=== PATIENT | female | born 1955 | race Caucasian/White ===

== ENCOUNTER 2017-03-06 00:42 | Emergency (ER) | payer BC ==
[2017-03-06 01:49] VITALS: BP 122/78
--- NOTE | 2017-03-06 03:03 | EDM.PDOC ---
ED HPI Skin/Rash - General Chief Complaint: Laceration Stated Complaint: FELL/CUT HEAD Time Seen by Provider: 03/06/17 02:57 Source: Reports: Patient History Limitations: Reports: No limitations - History of Present Illness INITIAL COMMENTS - FREE TEXT/NARRATIVE: This patient was at home playing a board game with friends and had been drinking just a little bit. At one point she fell and bumped her head against some furniture. there was no loss of consciousness and she's been acting normally since then. This happened just prior to arrival. ++ - Related Data Allergies Allergy/AdvReac Type Severity Reaction Status Date / Time No Known Allergies Allergy Verified 03/06/17 01:50 Home Meds: Ambulatory Orders Medication Instructions Recorded Confirmed Cholecalciferol (Vitamin D3) 1,000 units PO DAILY 03/06/17 03/06/17 [Vitamin D3] Levothyroxine Sodium [Synthroid] 75 mcg PO ACBREAKFAST 03/06/17 03/06/17 Multivitamin [Multivitamins] 1 each PO DAILY 03/06/17 03/06/17 Ubidecarenone [Co Q-10] 100 mg PO DAILY 03/06/17 03/06/17 Past Medical History [employer] History: Reports: Endocrine/Metabolic History: Reports: Hyperthyroidism - Infectious Disease History Infectious Disease History: Reports: Chicken pox Social & Family History - Tobacco Use Smoking Status *Q: Current Every Day Smoker Years of Tobacco use: 45 Packs/Tins Daily: 0.5 Second Hand Smoke Exposure: No - Caffeine Use Caffeine Use: Reports: Coffee - Recreational Drug Use Recreational Drug Use: No ED ROS GENERAL - Review of Systems Review Of Systems: See Below Constitutional: Reports: no symptoms HEENT: Reports: No symptoms, Other (She denies any neck pain) Respiratory: Reports: No Symptoms Cardiovascular: Reports: No symptoms ED EXAM, SKIN/RASH Exam: See Below Exam Limited By: No limitations General Appearance: alert, WD/WN, no apparent distress Eye Exam: bilateral eye: EOMI, PERRL Head: other (There is a vertical laceration approximately 4 cm long it is on the for head at the hairline extends slightly him up to the scalp edges are well approximated.) Neck: normal inspection, supple, non-tender, full range of motion Course - Vital Signs Last Recorded V/S: Last Vital Signs Temp 36.1 C 03/06/17 01:47 Pulse 77 03/06/17 01:47 Resp 16 03/06/17 01:47 BP 122/78 03/06/17 01:47 Pulse Ox 98 03/06/17 01:47 - Re-Assessments/Exams Free Text/Narrative Re-Assessment/Exam: 03/06/17 03:00 The wound was cleaned and flushed with normal saline. Wound margins were then treated with some Benzoyne and it is reapproximated with Steri-Strips #3. Steri -Strips were placed on the inferior two thirds of the laceration. The upper portion tended to bleed. The entire area was then coated heavily with Dermabond getting a good cosmetic closure. Departure - Departure Time of Disposition: 03:01 Disposition: Home, Self-Care 01 Condition: fair Clinical Impression: Facial laceration Forms: ED Department Discharge Additional Instructions: Do not put anything on the adhesive since that will dissolve it. You can wash her hair gently to avoid scrubbing over the wound such that might dislodge the adhesive or the tape strips. Leave the tape strips on for about a week then you may begin gently removing them.
== END 2017-03-06 03:26 | disposition home or self-care (01) ==
LOC: JP.ED 00:42
DX: S01.81XA Laceration without foreign body of other part of head, initial encounter (principal); F17.210 Nicotine dependence, cigarettes, uncomplicated; Z79.899 Other long term (current) drug therapy; W18.09XA Striking against other object with subsequent fall, initial encounter
CPT/HCPCS: 12013; 99283

== ENCOUNTER 2017-11-01 06:56 | Day surgery (SDC) | payer BC ==
[2017-11-01] MEDS ORDERED: Propofol 200 MG/20 ML SDV ONE ×2 (07:09→08:46)
[2017-11-01] MEDS ORDERED: Midazolam 1 MG/ML 2 ML SDV ONE (07:09)
[2017-11-01] MEDS ORDERED: fentaNYL 100 MCG/2 ML SDV ONE (07:09)
[2017-11-01] MEDS ORDERED: Lactated Ringers 1,000 ML IV SCH (07:15)
[2017-11-01 09:50] VITALS: BP 117/70
--- NOTE | 2017-11-01 12:04 | OR ---
DATE OF PROCEDURE: 11/01/2017 PREOPERATIVE DIAGNOSIS: Strong family history of colon cancer--mother had colon cancer. Personal history of colon polyps. POSTOPERATIVE DIAGNOSES: Strong family history of colon cancer--mother had colon cancer. Personal history of colon polyps. Diverticulosis. Small polyp, 15 cm from the anal verge. Two small polyps, distal rectum. PROCEDURES PERFORMED: Colonoscopy to the cecum with biopsy resection of small polyp at 15 cm from the anal verge, biopsy resection of two small distal rectal polyps, sent to the laboratory as one specimen. SURGEON: Zacarias Patel MD. ANESTHESIA: IV anesthesia with monitored anesthesia care. INDICATION: This 62-year-old white female is referred for a colonoscopy. Her mother had colon cancer, and she has a personal history of colon polyps. Her last colonoscopic exam was done in 2010. She intends to have these done every five years. I counseled her for a colonoscopy with possible biopsy and/or polypectomy, including risks and alternatives, and she gave her informed consent to proceed. DESCRIPTION OF PROCEDURE: The patient was placed in the left lateral decubitus position. IV anesthesia was administered by the Anesthesia Service. Time-out was held. A rectal exam was performed, which was unremarkable. The flexible video Olympus colonoscope was introduced through her anus, up her rectum, and out her colon all the way to the cecum. Once the cecum was reached, the scope was slowly withdrawn, examining the mucosa throughout. We saw very few small left-sided diverticula. There was no bleeding or inflammation associated with them. At 15 cm from the anal verge, we encountered a small polyp, which was removed with the biopsy forceps. The scope was brought back further, where it was retroflexed in the rectum. The distal rectum was found to have two small polyps, which were removed with the biopsy forceps and sent to the laboratory as one specimen. Additionally, we encountered some hemorrhoidal tissue. The scope was straightened and removed. She tolerated the procedure well. Zacarias Patel MD /[id number] MTDD
== END 2017-11-01 10:05 | disposition home or self-care (01) ==
LOC: JP.SDS 06:56
PROVIDERS: ATTEND Surgery
DX: Z12.11 Encounter for screening for malignant neoplasm of colon (principal); K63.5 Polyp of colon; K62.1 Rectal polyp; K57.30 Diverticulosis of large intestine without perforation or abscess without bleeding; F17.210 Nicotine dependence, cigarettes, uncomplicated; Z80.0 Family history of malignant neoplasm of digestive organs; Z86.010 Personal history of colon polyps; Z79.82 Long term (current) use of aspirin; Z79.899 Other long term (current) drug therapy
CPT/HCPCS: 45380; 88305; J2250; J2704; J3010; J7120

== ENCOUNTER 2019-11-29 15:27 | Inpatient (IN) | payer MEDICARE ==
[2019-11-29] MEDS ORDERED: Albuterol 0.083% 2.5 MG/3 ML Neb Soln NEB ONE ×2 (16:13→17:40)
--- NOTE | 2019-11-29 16:16 | EDM.PDOC ---
ED HPI GENERAL MEDICAL PROBLEM - General Chief Complaint: Respiratory Problem Stated Complaint: SOB Time Seen by Provider: 11/29/19 16:14 Source of Information: Reports: Patient History Limitations: Reports: No Limitations - History of Present Illness INITIAL COMMENTS - FREE TEXT/NARRATIVE: pt has been sob for the past 2 days. Today she has been very short. On arrival her o2 sats were in the 84 range. Onset: Other ( last 2 days. ) Duration: Hour(s): Location: Reports: Chest Associated Symptoms: Reports: Cough, Diaphoresis, Shortness of Breath, Weakness - Related Data Allergies Allergy/AdvReac Type Severity Reaction Status Date / Time No Known Allergies Allergy Verified 11/29/19 15:55 Home Meds: Home Meds Cholecalciferol (Vitamin D3) [Vitamin D3] 1,000 units PO DAILY 03/06/17 [History ] Levothyroxine Sodium [Synthroid] 75 mcg PO ACBREAKFAST 03/06/17 [History] Ascorbic Acid [Vitamin C] 1,000 mg PO DAILY 10/28/17 [History] Aspirin [Halfprin] 81 mg PO DAILY 10/28/17 [History] Vitamin B Complex [B Complex] 1 each PO DAILY 10/28/17 [History] Past Medical History HEENT History: Reports: Impaired Vision Cardiovascular History: Reports: High Cholesterol Gastrointestinal History: Reports: Colon Polyp, Hemorrhoids Genitourinary History: Reports: [employer]D [employer] REPA[employer]ER History: Reports: Musculoskeletal History: Reports: None Endocrine/Metabolic History: Reports: Hyperthyroidism Dermatologic History: Reports: Eczema - Infectious Disease History Infectious Disease History: Reports: Chicken Pox, Measles - Past Surgical History Head Surgeries/Procedures: Reports: None HEENT Surgical History: Reports: Other (See Below) Other HEENT Surgeries/Procedures: ear lobe surgery Cardiovascular Surgical History: Reports: None GI Surgical History: Reports: Colonoscopy, Lysis of Adhesions Female Surgical History: Reports: Section, Oophorectomy Endocrine Surgical History: Reports: None Musculoskeletal Surgical History: Reports: Other (See Below) Other Musculoskeletal Surgeries/Procedures:: trigger thumb release Dermatological Surgical History: Reports: Skin Biopsy Social & Family History - Tobacco Use Smoking Status *Q: Current Every Day Smoker Years of Tobacco use: 40 Packs/Tins Daily: 0.2 Used Tobacco, but Quit: No Second Hand Smoke Exposure: No - Caffeine Use Caffeine Use: Reports: Coffee - Alcohol Use Days Per Week of Alcohol Use: 3 Number of Drinks Per Day: 1 Total Drinks Per Week: 3 - Recreational Drug Use Recreational Drug Use: No ED ROS GENERAL - Review of Systems Review Of Systems: See Below Constitutional: Reports: Chills, Malaise, Weakness HEENT: Reports: No Symptoms Respiratory: Reports: Shortness of Breath, Cough, Sputum Cardiovascular: Reports: No Symptoms Endocrine: Reports: No Symptoms GI/Abdominal: Reports: No Symptoms : Reports: No Symptoms Musculoskeletal: Reports: No Symptoms Skin: Reports: No Symptoms ED EXAM, GENERAL - Physical Exam Exam: See Below Free Text/Narrative:: pt arrived with marked sob and wheezing. She has been coughing. She has not felt well for 2 days but she had a very rough nite and had difficulty breathing all nite. Exam Limited By: Respiratory Distress General Appearance: Alert, Anxious, Moderate Distress, Other (o2 sats were at 84 , ) Ears: Normal TMs Nose: Normal Inspection Throat/Mouth: Normal Inspection Head: Atraumatic Neck: Normal Inspection Respiratory/Chest: Decreased Breath Sounds, Wheezing Cardiovascular: Other ( rhythm is irregular at a rate of 120, ) GI/Abdominal: Soft, Non-Tender (Female) Exam: Deferred Rectal (Female) Exam: Deferred Back Exam: Normal Inspection Extremities: Normal Inspection Neurological: Alert, Oriented, Normal Cognition Psychiatric: Normal Affect Course - Vital Signs Last Recorded V/S: Last Vital Signs Temp 36.8 C 11/29/19 15:57 Pulse 122 H 11/29/19 17:44 Resp 25 H 11/29/19 17:44 BP 134/60 11/29/19 17:44 Pulse Ox 92 L 11/29/19 17:44 - Orders/Labs/Meds Orders: Active Orders 24 hr Category Date Time Status EKG Documentation Completion [RC] ASDIRECTED Care 11/29/19 17:01 Active RT Aerosol Therapy [RC] ASDIRECTED Care 11/29/19 16:14 Active RT Aerosol Therapy [RC] ASDIRECTED Care 11/29/19 17:40 Active Sodium Chloride 0.9% [Normal Saline] 1,000 ml Med 11/29/19 18:00 Ordered IV ASDIRECTED Sodium Chloride 0.9% [Saline Flush] Med 11/29/19 17:51 Ordered 10 ml FLUSH ASDIRECTED PRN Saline Lock Insert [OM.PC] Routine Oth 11/29/19 17:51 Ordered EKG 12 Lead [EK] Routine Ther 11/29/19 17:00 Ordered Medication Orders Sodium Chloride (Normal Saline) 1,000 mls @ 500 mls/hr IV ASDIRECTED AUGUST Sodium Chloride (Saline Flush) 10 ml FLUSH ASDIRECTED PRN PRN Reason: Keep Vein Open Labs: Laboratory Tests 11/29/19 11/29/19 11/29/19 Range/Units 16:25 16:25 16:28 WBC 10.6 (4.5-11.0) K/uL RBC 4.76 (3.30-5.50) M/uL Hgb 14.6 (12.0-15.0) g/dL Hct 43.7 (36.0-48.0) % MCV 92 (80-98) fL MCH 31 (27-31) pg MCHC 33 (32-36) % Plt Count 248 (150-400) K/uL Neut % (Auto) 69 H (36-66) % Lymph % (Auto) 16 L (24-44) % [place] % (Auto) 14 H (2-6) % Eos % (Auto) 1 L (2-4) % Baso % (Auto) 0 (0-1) % D-Dimer, Quantitative (0.0-400.0) ng/mL Puncture Site Left radial ABG pH 7.417 (7.350-7.450) ABG pCO2 41.0 (35.0-42.0) mmHg ABG pO2 68.5 L (75.0-100.0) mmHg ABG HCO3 25.9 (22.0-26.0) mmol/L ABG Total CO2 22.6 (21.0-25.0) mmol/L ABG O2 Saturation 93.5 L (95.0-98.0) % ABG O2 Content 18.8 (15.0-23.0) %vol ABG Base Excess 1.7 mm/L ABG Hemoglobin 14.6 (12.0-16.0) g/dL ABG Oxyhemoglobin 91.8 % ABG Carboxyhemoglobin 1.2 (0.0-1.6) % ABG Methemoglobin 0.6 % [place]ilton Test Passed O2 Delivery Device Nasal cannula Oxygen Flow Rate 2 L Sodium 135 L (140-148) mmol/L Potassium 4.0 (3.6-5.2) mmol/L Chloride 98 L (100-108) mmol/L Carbon Dioxide 28 (21-32) mmol/L Anion Gap 13.0 (5.0-14.0) mmol/L BUN 7 (7-18) mg/dL Creatinine 0.6 (0.6-1.0) mg/dL Est Cr Clr Drug Dosing 66.25 mL/min Estimated GFR (MDRD) > 60 (>60) Glucose 111 H (74-106) mg/dL Calcium 8.9 (8.5-10.1) mg/dL Total Bilirubin 0.4 (0.2-1.0) mg/dL AST 26 (15-37) U/L ALT 36 (12-78) U/L Alkaline Phosphatase 96 (46-116) U/L Troponin I (0.000-0.056) ng/mL NT-Pro-B Natriuret Pep (5-125) pg/mL Total Protein 7.7 (6.4-8.2) g/dL Albumin 3.7 (3.4-5.0) g/dL Globulin 4.0 H (2.3-3.5) g/dL Albumin/Globulin Ratio 0.9 L (1.2-2.2) 11/29/19 11/29/19 11/29/19 Range/Units 16:43 17:00 17:00 WBC (4.5-11.0) K/uL RBC (3.30-5.50) M/uL Hgb (12.0-15.0) g/dL Hct (36.0-48.0) % MCV (80-98) fL MCH (27-31) pg MCHC (32-36) % Plt Count (150-400) K/uL Neut % (Auto) (36-66) % Lymph % (Auto) (24-44) % [place] % (Auto) (2-6) % Eos % (Auto) (2-4) % Baso % (Auto) (0-1) % D-Dimer, Quantitative < 100 (0.0-400.0) ng/mL Puncture Site ABG pH (7.350-7.450) ABG pCO2 (35.0-42.0) mmHg ABG pO2 (75.0-100.0) mmHg ABG HCO3 (22.0-26.0) mmol/L ABG Total CO2 (21.0-25.0) mmol/L ABG O2 Saturation (95.0-98.0) % ABG O2 Content (15.0-23.0) %vol ABG Base Excess mm/L ABG Hemoglobin (12.0-16.0) g/dL ABG Oxyhemoglobin % ABG Carboxyhemoglobin (0.0-1.6) % ABG Methemoglobin % Nilton Test O2 Delivery Device Oxygen Flow Rate L Sodium (140-148) mmol/L Potassium (3.6-5.2) mmol/L Chloride (100-108) mmol/L Carbon Dioxide (21-32) mmol/L Anion Gap (5.0-14.0) mmol/L BUN (7-18) mg/dL Creatinine (0.6-1.0) mg/dL Est Cr Clr Drug Dosing mL/min Estimated GFR (MDRD) (>60) Glucose (74-106) mg/dL Calcium (8.5-10.1) mg/dL Total Bilirubin (0.2-1.0) mg/dL AST (15-37) U/L ALT (12-78) U/L Alkaline Phosphatase (46-116) U/L Troponin I < 0.017 (0.000-0.056) ng/mL NT-Pro-B Natriuret Pep 77 (5-125) pg/mL Total Protein (6.4-8.2) g/dL Albumin (3.4-5.0) g/dL Globulin (2.3-3.5) g/dL Albumin/Globulin Ratio (1.2-2.2) Meds: Medications Generic Name Dose Route Start Last Admin Trade Name Freq PRN Reason Stop Dose Admin Sodium Chloride 1,000 mls @ 500 mls/hr 11/29/19 18:00 Normal Saline IV ASDIRECTED AUGUST Sodium Chloride 10 ml 11/29/19 17:51 Saline Flush FLUSH ASDIRECTED PRN Keep Vein Open Discontinued Medications Generic Name Dose Route Start Last Admin Trade Name Freq PRN Reason Stop Dose Admin Albuterol 2.5 mg 11/29/19 16:13 11/29/19 16:23 Proventil Neb Soln NEB 11/29/19 16:14 2.5 mg ONETIME ONE Administration Albuterol 2.5 mg 11/29/19 17:40 11/29/19 17:51 Proventil Neb Soln NEB 11/29/19 17:41 2.5 mg ONETIME ONE Administration Methylprednisolone Sodium Succinate 125 mg 11/29/19 17:47 Solu-Medrol IVPUSH 11/29/19 17:48 ONETIME ONE - Re-Assessments/Exams Free Text/Narrative Re-Assessment/Exam: 11/29/19 17:55 pt was given a albuterol neb and she improved markedly. She did have neg influ. She had a wbc that was normal. Her ddiner was 100. Her bnp was normal. Her trop was neg. She continues to be sating on the low side at 89-100. She continues to have a HR of 120. Departure - Departure Time of Disposition: 17:01 Disposition: Admitted As Inpatient 64 Condition: Good, Fair Clinical Impression: Bronchospasm, Bronchitis, Sinus tachycardia - Discharge Information Referrals: Elizabeth Santana PA-C [Primary Care Provider] - Forms: ED Department Discharge Care Plan Goals: admit to Dr Thomas bronchospasm, tachy, and bronchitis Sepsis Event Note - Evaluation Sepsis Screening Result: No Definite Risk - Focused Exam Vital Signs: Vital Signs Temp Pulse Resp BP Pulse Ox 11/29/19 17:44 122 H 25 H 134/60 92 L 11/29/19 17:08 120 H 25 H 137/50 L 88 L 11/29/19 16:17 119 H 26 H 134/49 L 93 L 11/29/19 15:57 36.8 C 109 H 22 H 154/49 H 84 L 11/29/19 15:51 36.8 C 109 H 22 H 154/49 H 84 L Date Exam was Performed: 11/29/19 Time Exam was Performed: 17:52 - My Orders Last 24 Hours: My Active Orders 11/29/19 16:14 RT Aerosol Therapy [RC] ASDIRECTED 11/29/19 17:00 EKG 12 Lead [EK] Routine 11/29/19 17:01 EKG Documentation Completion [RC] ASDIRECTED 11/29/19 17:40 RT Aerosol Therapy [RC] ASDIRECTED 11/29/19 17:51 Sodium Chloride 0.9% [Saline Flush] 10 ml FLUSH ASDIRECTED PRN Saline Lock Insert [OM.PC] Routine 11/29/19 18:00 Sodium Chloride 0.9% [Normal Saline] 1,000 ml IV ASDIRECTED - Assessment/Plan Last 24 Hours: My Active Orders 11/29/19 16:14 RT Aerosol Therapy [RC] ASDIRECTED 11/29/19 17:00 EKG 12 Lead [EK] Routine 11/29/19 17:01 EKG Documentation Completion [RC] ASDIRECTED 11/29/19 17:40 RT Aerosol Therapy [RC] ASDIRECTED 11/29/19 17:51 Sodium Chloride 0.9% [Saline Flush] 10 ml FLUSH ASDIRECTED PRN Saline Lock Insert [OM.PC] Routine 11/29/19 18:00 Sodium Chloride 0.9% [Normal Saline] 1,000 ml IV ASDIRECTED
--- NOTE | 2019-11-29 16:57 | CRLCR ---
INDICATION: shortness of breath TECHNIQUE: Chest radiograph 1 view COMPARISON: None FINDINGS: Mediastinum: The mediastinum is normal in appearance. The heart silhouette is normal in size and morphology. Lung: Both lungs are unremarkable in appearance. No sign of pleural effusion seen. No pneumothorax is identified. Bone and Soft tissue: Unremarkable for age. IMPRESSION: 1. No acute cardiopulmonary disease is seen. Dictated by: Cedrick Varela MD @ 11/29/2019 16:54:56 (Electronically Signed)
[2019-11-29] MEDS ORDERED: methylPREDNISolone Sodium Succinate 125 MG/2 ML SDV IVPUSH ONE (17:47)
[2019-11-29] MEDS ORDERED: Sodium Chloride 0.9% 10 ML Syringe FLUSH PRN (17:51)
[2019-11-29] MEDS ORDERED: Sodium Chloride 0.9% 1,000 ML IV SCH (18:00)
--- NOTE | 2019-11-29 18:23 | PCM.HP.2 ---
H&P History of Present Illness - General Date of Service: 11/29/19 Admit Problem/Dx: Admission Diagnosis/Problem Admission Diagnosis/Problem Acute bronchitis with bronchospasm Source of Information: Patient, Family, Provider History Limitations: Reports: No Limitations - History of Present Illness Initial Comments - Free Text/Narative: CC: I couldn't catch my breath HPI: Raisa presents to the emergency room today with several days of progressive cough and shortness of breath. Cough has become so persistent and intense that she has not slept hardly at all for the past 2 nights. For the most part her cough is dry but occasionally she is able to produce small quantities of clear to yellow sputum. She is short of breath with minimal activity at this point. She does not have any chest pain. She does not think she has had any fevers. No swelling in her ankles. She notes nasal congestion and rhinorrhea but no complaints of sore throat. She does report a sick contact and notes that her grandson had similar symptoms when she visited him just shy of a week ago. He has been getting better with supportive cares. No change in bowel or bladder habits. No nausea or abdominal pain. She has been taking Tylenol and [id number] cold remedies but despite this things have been getting worse. Work-up in the emergency room has been reassuring as far as laboratory studies and imaging. She is hypoxic and requires 2 L of supplemental oxygen. She did show some improvement with nebulizer therapies but continues to be hypoxic and will be admitted for management of bronchitis with bronchospasm. - Related Data Allergies/Adverse Reactions: Allergies Allergy/AdvReac Type Severity Reaction Status Date / Time No Known Allergies Allergy Verified 11/29/19 15:55 Home Medications: Home Meds Cholecalciferol (Vitamin D3) [Vitamin D3] 1,000 units PO DAILY 03/06/17 [History ] Levothyroxine Sodium [Synthroid] 75 mcg PO ACBREAKFAST 03/06/17 [History] Ascorbic Acid [Vitamin C] 1,000 mg PO DAILY 10/28/17 [History] Aspirin [Halfprin] 81 mg PO DAILY 10/28/17 [History] Vitamin B Complex [B Complex] 1 each PO DAILY 10/28/17 [History] Past Medical History HEENT History: Reports: Impaired Vision Cardiovascular History: Reports: High Cholesterol Gastrointestinal History: Reports: Colon Polyp, Hemorrhoids Genitourinary History: Reports: STD [employer]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: Musculoskeletal History: Reports: None Endocrine/Metabolic History: Reports: Hyperthyroidism Dermatologic History: Reports: Eczema - Infectious Disease History Infectious Disease History: Reports: Chicken Pox, Measles - Past Surgical History Head Surgeries/Procedures: Reports: None HEENT Surgical History: Reports: Other (See Below) Other HEENT Surgeries/Procedures: ear lobe surgery Cardiovascular Surgical History: Reports: None GI Surgical History: Reports: Colonoscopy, Lysis of Adhesions Female Surgical History: Reports: Section, Oophorectomy Endocrine Surgical History: Reports: None Musculoskeletal Surgical History: Reports: Other (See Below) Other Musculoskeletal Surgeries/Procedures:: trigger thumb release Dermatological Surgical History: Reports: Skin Biopsy Social & Family History - Family History Cardiac: Denies: CAD - Tobacco Use Smoking Status *Q: Current Every Day Smoker Years of Tobacco use: 40 Packs/Tins Daily: 0.2 Used Tobacco, but Quit: No Second Hand Smoke Exposure: No - Caffeine Use Caffeine Use: Reports: Coffee - Alcohol Use Days Per Week of Alcohol Use: 3 Number of Drinks Per Day: 1 Total Drinks Per Week: 3 - Recreational Drug Use Recreational Drug Use: No H&P Review of Systems - Review of Systems: Review Of Systems: See Below Free Text/Narrative: A complete 12 point review of systems was obtained. Pertinent positives and negatives are noted in the history of present illness. All other systems were reviewed and were negative except as noted. Exam - Exam Exam: See Below - Vital Signs Vital Signs: Last Vital Signs Temp 36.8 C 11/29/19 15:57 Pulse 122 H 11/29/19 17:44 Resp 25 H 11/29/19 17:44 BP 134/60 11/29/19 17:44 Pulse Ox 92 L 11/29/19 17:44 Weight: 53.977 kg - Exam Quality Assessment: Supplemental Oxygen General: Alert, Oriented, Cooperative. No: Mild Distress HEENT: Conjunctiva Clear, Mucosa Moist & [place]. No: Scleral Icterus Neck: Supple, Trachea Midline. No: Lymphadenopathy Lungs: Normal Respiratory Effort, Rhonchi (diffuse bilateral ), Wheezing ( moderate expiratory ) Cardiovascular: Regular Rhythm, Tachycardia GI/Abdominal Exam: Normal Bowel Sounds, Soft, No Distention Extremities: No Pedal Edema. No: Increased Warmth Peripheral Pulses: 2+: Dorsalis Pedis (L), Dorsalis Pedis (R) Skin: Warm, Dry Neuro Extensive - Mental Status: Alert, Oriented x3, Nl Response to Commands Neuro Extensive - Motor, Sensory, Reflexes: No: Dysarthria, Abnormal Motor, Tremor Psychiatric: Alert, Normal Affect - Patient Data Lab Results Last 24 hrs: Laboratory Results - last 24 hr 11/29/19 11/29/19 11/29/19 Range/Units 16:25 16:25 16:28 WBC 10.6 (4.5-11.0) K/uL RBC 4.76 (3.30-5.50) M/uL Hgb 14.6 (12.0-15.0) g/dL Hct 43.7 (36.0-48.0) % MCV 92 (80-98) fL MCH 31 (27-31) pg MCHC 33 (32-36) % Plt Count 248 (150-400) K/uL Neut % (Auto) 69 H (36-66) % Lymph % (Auto) 16 L (24-44) % [place] % (Auto) 14 H (2-6) % Eos % (Auto) 1 L (2-4) % Baso % (Auto) 0 (0-1) % D-Dimer, Quantitative (0.0-400.0) ng/mL Puncture Site Left radial ABG pH 7.417 (7.350-7.450) ABG pCO2 41.0 (35.0-42.0) mmHg ABG pO2 68.5 L (75.0-100.0) mmHg ABG HCO3 25.9 (22.0-26.0) mmol/L ABG Total CO2 22.6 (21.0-25.0) mmol/L ABG O2 Saturation 93.5 L (95.0-98.0) % ABG O2 Content 18.8 (15.0-23.0) %vol ABG Base Excess 1.7 mm/L ABG Hemoglobin 14.6 (12.0-16.0) g/dL ABG Oxyhemoglobin 91.8 % ABG Carboxyhemoglobin 1.2 (0.0-1.6) % ABG Methemoglobin 0.6 % [place] Test Passed O2 Delivery Device Nasal cannula Oxygen Flow Rate 2 L Sodium 135 L (140-148) mmol/L Potassium 4.0 (3.6-5.2) mmol/L Chloride 98 L (100-108) mmol/L Carbon Dioxide 28 (21-32) mmol/L Anion Gap 13.0 (5.0-14.0) mmol/L BUN 7 (7-18) mg/dL Creatinine 0.6 (0.6-1.0) mg/dL Est Cr Clr Drug Dosing 66.25 mL/min Estimated GFR (MDRD) > 60 (>60) Glucose 111 H (74-106) mg/dL Calcium 8.9 (8.5-10.1) mg/dL Total Bilirubin 0.4 (0.2-1.0) mg/dL AST 26 (15-37) U/L ALT 36 (12-78) U/L Alkaline Phosphatase 96 (46-116) U/L Troponin I (0.000-0.056) ng/mL NT-Pro-B Natriuret Pep (5-125) pg/mL Total Protein 7.7 (6.4-8.2) g/dL Albumin 3.7 (3.4-5.0) g/dL Globulin 4.0 H (2.3-3.5) g/dL Albumin/Globulin Ratio 0.9 L (1.2-2.2) 11/29/19 11/29/19 11/29/19 Range/Units 16:43 17:00 17:00 WBC (4.5-11.0) K/uL RBC (3.30-5.50) M/uL Hgb (12.0-15.0) g/dL Hct (36.0-48.0) % MCV (80-98) fL MCH (27-31) pg MCHC (32-36) % Plt Count (150-400) K/uL Neut % (Auto) (36-66) % Lymph % (Auto) (24-44) % [place] % (Auto) (2-6) % Eos % (Auto) (2-4) % Baso % (Auto) (0-1) % D-Dimer, Quantitative < 100 (0.0-400.0) ng/mL Puncture Site ABG pH (7.350-7.450) ABG pCO2 (35.0-42.0) mmHg ABG pO2 (75.0-100.0) mmHg ABG HCO3 (22.0-26.0) mmol/L ABG Total CO2 (21.0-25.0) mmol/L ABG O2 Saturation (95.0-98.0) % ABG O2 Content (15.0-23.0) %vol ABG Base Excess mm/L ABG Hemoglobin (12.0-16.0) g/dL ABG Oxyhemoglobin % ABG Carboxyhemoglobin (0.0-1.6) % ABG Methemoglobin % [place] Test O2 Delivery Device Oxygen Flow Rate L Sodium (140-148) mmol/L Potassium (3.6-5.2) mmol/L Chloride (100-108) mmol/L Carbon Dioxide (21-32) mmol/L Anion Gap (5.0-14.0) mmol/L BUN (7-18) mg/dL Creatinine (0.6-1.0) mg/dL Est Cr Clr Drug Dosing mL/min Estimated GFR (MDRD) (>60) Glucose (74-106) mg/dL Calcium (8.5-10.1) mg/dL Total Bilirubin (0.2-1.0) mg/dL AST (15-37) U/L ALT (12-78) U/L Alkaline Phosphatase (46-116) U/L Troponin I < 0.017 (0.000-0.056) ng/mL NT-Pro-B Natriuret Pep 77 (5-125) pg/mL Total Protein (6.4-8.2) g/dL Albumin (3.4-5.0) g/dL Globulin (2.3-3.5) g/dL Albumin/Globulin Ratio (1.2-2.2) Result Diagrams: 11/29/19 16:25 11/29/19 16:25 Jerry Results Last 24 hrs: Microbiology 11/29/19 16:23 Influenza Type A Antigen Screen - Final Nasal Aspirate, Left NEGATIVE INFLUENZA A VIRUS AG REFERENCE RANGE: NEGATIVE Influenza Type B Antigen Screen - Final NEGATIVE INFLUENZA B VIRUS AG REFERENCE RANGE: NEGATIVE Imaging Impressions Last 24 hrs: CXR - images personally reviewed - lungs are clear with no mass, infiltrate or effusion. Heart size is normal. Sepsis Event Note - Evaluation Sepsis Screening Result: No Definite Risk - Focused Exam Vital Signs: Vital Signs Temp Pulse Resp BP Pulse Ox 11/29/19 17:44 122 H 25 H 134/60 92 L 11/29/19 17:08 120 H 25 H 137/50 L 88 L 11/29/19 16:17 119 H 26 H 134/49 L 93 L 11/29/19 15:57 36.8 C 109 H 22 H 154/49 H 84 L 11/29/19 15:51 36.8 C 109 H 22 H 154/49 H 84 L Date Exam was Performed: 11/29/19 Time Exam was Performed: 18:34 *Q Meaningful Use (ADM) - VTE Risk Assess *Q Each Risk Factor Represents 1 Point: Serious lung disease including pneumonia Total Score 1 Point Risk Factors: 1 Each Risk Factor Represents 2 Points: Age 60 - 74 Years Total Score 2 Point Risk Factors: 2 Each Risk Factor Represents 3 Points: None Total Score 3 Point Risk Factors: 0 Each Risk Factor Represents 5 Points: None Total Score 5 Point Risk Factors: 0 Venous Thromboembolism Risk Factor Score *Q: 3 - Problem List (1) Acute bronchitis with bronchospasm SNOMED Code(s): 96718786 ICD Code: J20.9 - ACUTE BRONCHITIS, UNSPECIFIED Status: Acute Current Visit: Yes (2) Acute respiratory failure with hypoxia SNOMED Code(s): 91465740, 859123377 ICD Code: J96.01 - ACUTE RESPIRATORY FAILURE WITH HYPOXIA Status: Acute Current Visit: Yes Problem List Initiated/Reviewed/Updated: Yes Orders Last 24hrs: Active Orders 24 hr Category Date Time Status Patient Status Manage Transfer [TRANSFER] Routine ADT 11/29/19 18:14 Ordered EKG Documentation Completion [RC] ASDIRECTED Care 11/29/19 17:01 Active RT Aerosol Therapy [RC] ASDIRECTED Care 11/29/19 16:14 Active RT Aerosol Therapy [RC] ASDIRECTED Care 11/29/19 17:40 Active Sodium Chloride 0.9% [Normal Saline] 1,000 ml Med 11/29/19 18:00 Active IV ASDIRECTED Sodium Chloride 0.9% [Saline Flush] Med 11/29/19 17:51 Active 10 ml FLUSH ASDIRECTED PRN Saline Lock Insert [OM.PC] Routine Oth 11/29/19 17:51 Ordered Resuscitation Status Routine Resus Stat 11/29/19 18:15 Ordered EKG 12 Lead [EK] Routine Ther 11/29/19 17:00 Ordered Medication Orders Sodium Chloride (Normal Saline) 1,000 mls @ 500 mls/hr IV ASDIRECTED AUGUST Last Admin: 11/29/19 18:15 Dose: 500 mls/hr Sodium Chloride (Saline Flush) 10 ml FLUSH ASDIRECTED PRN PRN Reason: Keep Vein Open Last Admin: 11/29/19 18:19 Dose: 10 ml Assessment/Plan Comment:: ASSESSMENT AND PLAN - Acute bronchitis with bronchospasm-complicated by acute respiratory failure with hypoxia. Currently requiring 2 L of oxygen. Main symptoms are shortness of breath and cough. Viral illness is suspected with a normal white count, no fever and sick contact prior to onset of symptoms. With her hypoxia she is not safe for outpatient management. -IV steroids tonight and transition to prednisone tomorrow -Scheduled and as needed nebulizers -Symptomatic management of the cough -Supplement oxygen as needed -Sputum culture if able Tobacco dependence-currently smoking about 5 cigarettes/day. Maintenance issues - - DVT prophylaxis -mechanical - GI prophylaxis -not indicated - Nutrition -regular - Sandoval catheter -not indicated CODE STATUS -full code Admission justification -this patient will be admitted for inpatient services and is medically appropriate meeting medical necessity for inpatient admission as outlined in my documentation. I reasonably expect the patient will require inpatient services that span a period time over 2 midnights. I reasonably expect this patient to be discharged or transferred within 96 hours [facility]. Disposition -I would anticipate discharge to home after the hospital stay Primary care physician - Elizabeth Thomas M.D. - Mortality Measure Prognosis:: Good
[2019-11-29] MEDS ORDERED: Albuterol 0.083% 2.5 MG/3 ML Neb Soln NEB PRN (19:09)
[2019-11-29] MEDS ORDERED: Ondansetron 4 MG Tab.DIS PO PRN (19:09)
[2019-11-29] MEDS ORDERED: Ibuprofen 600 MG Tab PO PRN (19:09)
[2019-11-29] MEDS ORDERED: Melatonin 3 MG Tab PO PRN (19:09)
[2019-11-29] MEDS ORDERED: Ondansetron 4 MG/2 ML SDV IV PRN (19:09)
[2019-11-29] MEDS ORDERED: Acetaminophen 325 MG Tab PO PRN (19:09)
[2019-11-29] MEDS ORDERED: Benzonatate 100 MG Cap PO PRN (19:09)
[2019-11-29] MEDS ORDERED: Magnesium Hydroxide 400 MG/5 ML Susp 30 ML Cup PO PRN (19:09)
[2019-11-29] MEDS: Albuterol 0.083% 2.5 MG/3 ML Neb Soln NEB SCH (21:22)
[2019-11-29] MEDS: Codeine/guaiFENesin 100mg-10 MG/5 ML Syrup 10 ML Cup PO PRN (21:50)
[2019-11-30] MEDS ORDERED: methylPREDNISolone Sodium Succinate 125 MG/2 ML SDV IVPUSH ONE (02:00)
[2019-11-30] MEDS: Albuterol 0.083% 2.5 MG/3 ML Neb Soln NEB SCH ×4 (07:20→21:45)
[2019-11-30] MEDS ORDERED: Levothyroxine 50 MCG Tab PO SCH (07:30)
[2019-11-30] MEDS ORDERED: predniSONE 20 MG Tab PO SCH (07:30)
[2019-11-30] MEDS: Levothyroxine 25 MCG, Levothyroxine 50 MCG PO SCH ×2 (08:43)
[2019-11-30] MEDS: Vitamin B Complex Tab PO SCH (08:43)
[2019-11-30] MEDS: Aspirin 81 MG Tab.EC PO SCH (08:43)
[2019-11-30] MEDS: predniSONE 20 MG Tab PO SCH ×2 (08:43→17:28)
--- NOTE | 2019-11-30 11:38 | PCM.PN ---
- General Info Date of Service: 11/30/19 Subjective Update: There were no acute events overnight. She does continue to require supplemental oxygen but feels less short of breath today. She feels like she is wheezing less. No complaints of chest pain or nausea. Appetite has been good. Vital signs have been stable other than her supplemental oxygen requirement. Functional Status: Reports: Pain Controlled, Tolerating Diet - Review of Systems General: Denies: Fever Pulmonary: Reports: Shortness of Breath, Cough - Patient Data Vitals - Most Recent: Last Vital Signs Temp 35.9 C 11/30/19 10:52 Pulse 85 11/30/19 10:58 Resp 16 11/30/19 10:52 BP 98/73 11/30/19 10:52 Pulse Ox 94 L 11/30/19 10:52 Weight - Most Recent: 55.338 kg I&O - Last 24 Hours: Intake & Output 11/29/19 11/30/19 11/30/19 22:59 06:59 14:59 Intake Total 420 Balance 420 Lab Results Last 24 Hours: Laboratory Results - last 24 hr 11/29/19 11/29/19 11/29/19 Range/Units 16:25 16:25 16:28 WBC 10.6 (4.5-11.0) K/uL RBC 4.76 (3.30-5.50) M/uL Hgb 14.6 (12.0-15.0) g/dL Hct 43.7 (36.0-48.0) % MCV 92 (80-98) fL MCH 31 (27-31) pg MCHC 33 (32-36) % Plt Count 248 (150-400) K/uL Neut % (Auto) 69 H (36-66) % Lymph % (Auto) 16 L (24-44) % [place] % (Auto) 14 H (2-6) % Eos % (Auto) 1 L (2-4) % Baso % (Auto) 0 (0-1) % D-Dimer, Quantitative (0.0-400.0) ng/mL Puncture Site Left radial ABG pH 7.417 (7.350-7.450) ABG pCO2 41.0 (35.0-42.0) mmHg ABG pO2 68.5 L (75.0-100.0) mmHg ABG HCO3 25.9 (22.0-26.0) mmol/L ABG Total CO2 22.6 (21.0-25.0) mmol/L ABG O2 Saturation 93.5 L (95.0-98.0) % ABG O2 Content 18.8 (15.0-23.0) %vol ABG Base Excess 1.7 mm/L ABG Hemoglobin 14.6 (12.0-16.0) g/dL ABG Oxyhemoglobin 91.8 % ABG Carboxyhemoglobin 1.2 (0.0-1.6) % ABG Methemoglobin 0.6 % [place] Test Passed O2 Delivery Device Nasal cannula Oxygen Flow Rate 2 L Sodium 135 L (140-148) mmol/L Potassium 4.0 (3.6-5.2) mmol/L Chloride 98 L (100-108) mmol/L Carbon Dioxide 28 (21-32) mmol/L Anion Gap 13.0 (5.0-14.0) mmol/L BUN 7 (7-18) mg/dL Creatinine 0.6 (0.6-1.0) mg/dL Est Cr Clr Drug Dosing 66.25 mL/min Estimated GFR (MDRD) > 60 (>60) Glucose 111 H (74-106) mg/dL Calcium 8.9 (8.5-10.1) mg/dL Total Bilirubin 0.4 (0.2-1.0) mg/dL AST 26 (15-37) U/L ALT 36 (12-78) U/L Alkaline Phosphatase 96 (46-116) U/L Troponin I (0.000-0.056) ng/mL NT-Pro-B Natriuret Pep (5-125) pg/mL Total Protein 7.7 (6.4-8.2) g/dL Albumin 3.7 (3.4-5.0) g/dL Globulin 4.0 H (2.3-3.5) g/dL Albumin/Globulin Ratio 0.9 L (1.2-2.2) 11/29/19 11/29/19 11/29/19 Range/Units 16:43 17:00 17:00 WBC (4.5-11.0) K/uL RBC (3.30-5.50) M/uL Hgb (12.0-15.0) g/dL Hct (36.0-48.0) % MCV (80-98) fL MCH (27-31) pg MCHC (32-36) % Plt Count (150-400) K/uL Neut % (Auto) (36-66) % Lymph % (Auto) (24-44) % [place] % (Auto) (2-6) % Eos % (Auto) (2-4) % Baso % (Auto) (0-1) % D-Dimer, Quantitative < 100 (0.0-400.0) ng/mL Puncture Site ABG pH (7.350-7.450) ABG pCO2 (35.0-42.0) mmHg ABG pO2 (75.0-100.0) mmHg ABG HCO3 (22.0-26.0) mmol/L ABG Total CO2 (21.0-25.0) mmol/L ABG O2 Saturation (95.0-98.0) % ABG O2 Content (15.0-23.0) %vol ABG Base Excess mm/L ABG Hemoglobin (12.0-16.0) g/dL ABG Oxyhemoglobin % ABG Carboxyhemoglobin (0.0-1.6) % ABG Methemoglobin % [place] Test O2 Delivery Device Oxygen Flow Rate L Sodium (140-148) mmol/L Potassium (3.6-5.2) mmol/L Chloride (100-108) mmol/L Carbon Dioxide (21-32) mmol/L Anion Gap (5.0-14.0) mmol/L BUN (7-18) mg/dL Creatinine (0.6-1.0) mg/dL Est Cr Clr Drug Dosing mL/min Estimated GFR (MDRD) (>60) Glucose (74-106) mg/dL Calcium (8.5-10.1) mg/dL Total Bilirubin (0.2-1.0) mg/dL AST (15-37) U/L ALT (12-78) U/L Alkaline Phosphatase (46-116) U/L Troponin I < 0.017 (0.000-0.056) ng/mL NT-Pro-B Natriuret Pep 77 (5-125) pg/mL Total Protein (6.4-8.2) g/dL Albumin (3.4-5.0) g/dL Globulin (2.3-3.5) g/dL Albumin/Globulin Ratio (1.2-2.2) Jerry Results Last 24 Hours: Microbiology 11/29/19 16:23 Influenza Type A Antigen Screen - Final Nasal Aspirate, Left NEGATIVE INFLUENZA A VIRUS AG REFERENCE RANGE: NEGATIVE Influenza Type B Antigen Screen - Final NEGATIVE INFLUENZA B VIRUS AG REFERENCE RANGE: NEGATIVE Med Orders - Current: Current Medications Acetaminophen (Tylenol) 650 mg PO Q4H PRN PRN Reason: Pain (Mild 1-3)/fever Last Admin: 11/29/19 19:52 Dose: 650 mg Albuterol (Proventil Neb Soln) 2.5 mg NEB Q4H PRN PRN Reason: Shortness Of Breath/wheezing Albuterol (Proventil Neb Soln) 2.5 mg NEB QIDRT [facility] Last Admin: 11/30/19 10:58 Dose: 2.5 mg Aspirin (Halfprin) 81 mg PO DAILY [facility] Last Admin: 11/30/19 08:43 Dose: 81 mg Benzonatate (Tessalon Perles) 100 mg PO TID PRN PRN Reason: Cough Guaifenesin/Codeine Phosphate (Robitussin Ac) 10 ml PO Q4H PRN PRN Reason: Cough Last Admin: 11/29/19 21:50 Dose: 10 ml Ibuprofen (Motrin) 600 mg PO Q6H PRN PRN Reason: Pain/Fever Levothyroxine Sodium 25 mcg/ (Levothyroxine Sodium 50 mcg) 75 mcg PO ACBREAKFAST [facility] Last Admin: 11/30/19 08:43 Dose: 75 mcg Magnesium Hydroxide (Milk Of Magnesia) 30 ml PO Q12H PRN PRN Reason: Constipation Melatonin (Melatonin) 9 mg PO BEDTIME PRN PRN Reason: Sleep Ondansetron HCl (Zofran Odt) 4 mg PO Q6H PRN PRN Reason: Nausea able to take PO Ondansetron HCl (Zofran) 4 mg IV Q6H PRN PRN Reason: Nausea/Vomiting Prednisone (Prednisone) 20 mg PO BIDMEALS [facility] Last Admin: 11/30/19 08:43 Dose: 20 mg Senna/Docusate Sodium (Senna Plus) 1 tab PO BID PRN PRN Reason: Constipation Sodium Chloride (Saline Flush) 10 ml FLUSH ASDIRECTED PRN PRN Reason: Keep Vein Open Last Admin: 11/29/19 18:19 Dose: 10 ml Vitamin B Complex (Vitamin B Complex) 1 each PO DAILY [facility] Last Admin: 11/30/19 08:43 Dose: 1 each Discontinued Medications Albuterol (Proventil Neb Soln) 2.5 mg NEB ONETIME ONE Stop: 11/29/19 16:14 Last Admin: 11/29/19 16:23 Dose: 2.5 mg Albuterol (Proventil Neb Soln) 2.5 mg NEB ONETIME ONE Stop: 11/29/19 17:41 Last Admin: 11/29/19 17:51 Dose: 2.5 mg Sodium Chloride (Normal Saline) 1,000 mls @ 500 mls/hr IV ASDIRECTED AUGUST Last Admin: 11/29/19 18:15 Dose: 500 mls/hr Methylprednisolone Sodium Succinate (Solu-Medrol) 125 mg IVPUSH ONETIME ONE Stop: 11/29/19 17:48 Last Admin: 11/29/19 18:00 Dose: 125 mg Methylprednisolone Sodium Succinate (Solu-Medrol) 62.5 mg IVPUSH ONETIME ONE Stop: 11/30/19 02:01 Last Admin: 11/30/19 03:30 Dose: 62.5 mg - Exam Quality Assessment: Supplemental Oxygen General: Alert, Oriented, Cooperative, No Acute Distress Lungs: Normal Respiratory Effort, Wheezing (mild diffuse exp wheezing bilaterally ) Cardiovascular: Regular Rate, Regular Rhythm GI/Abdominal Exam: Soft, No Distention Extremities: No Pedal Edema. No: Increased Warmth Psy/Mental Status: Alert, Normal Affect Sepsis Event Note - Evaluation Sepsis Screening Result: No Definite Risk - Focused Exam Vital Signs: Vital Signs Temp Pulse Resp BP Pulse Ox 11/30/19 10:58 85 11/30/19 10:52 35.9 C 89 16 98/73 94 L 11/30/19 07:27 97 11/30/19 07:20 80 11/30/19 07:00 37.1 C 75 16 122/59 L 96 11/30/19 03:28 37.1 C 70 18 128/109 H 97 11/30/19 01:00 94 L 11/30/19 00:42 85 16 94 L Date Exam was Performed: 11/30/19 Time Exam was Performed: 14:14 - Problem List & Annotations (1) Acute bronchitis with bronchospasm SNOMED Code(s): 69634090 Code(s): J20.9 - ACUTE BRONCHITIS, UNSPECIFIED Status: Acute Current Visit: Yes (2) Acute respiratory failure with hypoxia SNOMED Code(s): 31015855, 984203707 Code(s): J96.01 - ACUTE RESPIRATORY FAILURE WITH HYPOXIA Status: Acute Current Visit: Yes - Problem List Review Problem List Initiated/Reviewed/Updated: Yes - My Orders Last 24 Hours: My Active Orders 11/29/19 18:15 Resuscitation Status Routine 11/29/19 19:09 Patient Status [ADT] Routine Antiembolic Devices [RC] .Routine Intake and Output [RC] QSHIFT Notify Provider Vital Signs [RC] ASDIRECTED Oxygen Therapy [RC] PRN RT Aerosol Therapy [RC] ASDIRECTED Up With Assistance [RC] ASDIRECTED VTE/DVT Education [RC] Per Unit Routine Vital Signs [RC] Q4H CULTURE RESPIRATORY + SMEAR [RM] Routine Acetaminophen [Tylenol] 650 mg PO Q4H PRN Albuterol [Proventil Neb Soln] 2.5 mg NEB Q4H PRN Benzonatate [Tessalon Perles] 100 mg PO TID PRN Codeine/guaiFENesin [Robitussin AC] 10 ml PO Q4H PRN Docusate Sodium/Sennosides [Senna Plus] 1 tab PO BID PRN Ibuprofen [Motrin] 600 mg PO Q6H PRN Magnesium Hydroxide [Milk of Magnesia] 30 ml PO Q12H PRN Melatonin 9 mg PO BEDTIME PRN Ondansetron [Zofran ODT] 4 mg PO Q6H PRN Ondansetron [Zofran] 4 mg IV Q6H PRN RT Acapella [RESPCARE] Routine Sequential Compression Device [OM.PC] Routine 11/29/19 21:00 Albuterol [Proventil Neb Soln] 2.5 mg NEB QIDRT 11/29/19 Dinner Regular Diet [DIET] 11/30/19 07:30 Levothyroxine [Synthroid] 75 mcg PO ACBREAKFAST 11/30/19 08:00 predniSONE 20 mg PO BIDMEALS 11/30/19 09:00 Aspirin [Halfprin] 81 mg PO DAILY Vitamin B Complex 1 each PO DAILY 11/30/19 11:33 Discontinue Telemetry Monitoring [Cardiac Monitoring Discontinue] [RC] Click to Edit - Plan Plan:: ASSESSMENT AND PLAN - Acute bronchitis with bronchospasm-complicated by acute respiratory failure with hypoxia. Still requiring supplemental oxygen but looks and feels better today. Still has poor air movement and a fair amount of wheezing. -Continue prednisone -Scheduled and as needed nebulizers -Symptomatic management of the cough -Supplement oxygen as needed -Sputum culture if able Tobacco dependence-currently smoking about 5 cigarettes/day. Maintenance issues - - DVT prophylaxis -mechanical - GI prophylaxis -not indicated - Nutrition -regular Disposition -I would anticipate discharge to home after the hospital stay Baljeet Thomas M.D.
[2019-11-30] MEDS: Codeine/guaiFENesin 100mg-10 MG/5 ML Syrup 10 ML Cup PO PRN (21:45)
[2019-12-01] MEDS: Levothyroxine 25 MCG, Levothyroxine 50 MCG PO SCH ×2 (07:22)
[2019-12-01] MEDS: Albuterol 0.083% 2.5 MG/3 ML Neb Soln NEB SCH ×4 (07:59→21:45)
[2019-12-01] MEDS: predniSONE 20 MG Tab PO SCH ×2 (10:07→17:47)
[2019-12-01] MEDS: Aspirin 81 MG Tab.EC PO SCH (10:07)
[2019-12-01] MEDS: Vitamin B Complex Tab PO SCH (10:08)
--- NOTE | 2019-12-01 12:07 | PCM.PN ---
- General Info Date of Service: 12/01/19 Subjective Update: There were no acute events overnight. The patient feels well and does not have much shortness of breath. She does have an ongoing cough. She does not produce much sputum. She has been up and walking around and feels well while she is doing so but she has hypoxic without oxygen. Oxygen saturations are in the low 80s without supplemental oxygen but in the low 90s with 1 L/min. No chest pain. Appetite has been good. No fevers. Functional Status: Reports: Pain Controlled, Tolerating Diet - Review of Systems General: Denies: Fever Pulmonary: Reports: Cough, Wheezing. Denies: Shortness of Breath - Patient Data Vitals - Most Recent: Last Vital Signs Temp 36.8 C 12/01/19 11:00 Pulse 67 12/01/19 11:10 Resp 18 12/01/19 11:00 BP 117/54 L 12/01/19 11:00 Pulse Ox 94 L 12/01/19 11:10 Weight - Most Recent: 55.338 kg I&O - Last 24 Hours: Intake & Output 11/30/19 12/01/19 12/01/19 22:59 06:59 14:59 Intake Total 240 300 420 Balance 240 300 420 Med Orders - Current: Current Medications Acetaminophen (Tylenol) 650 mg PO Q4H PRN PRN Reason: Pain (Mild 1-3)/fever Last Admin: 11/29/19 19:52 Dose: 650 mg Albuterol (Proventil Neb Soln) 2.5 mg NEB Q4H PRN PRN Reason: Shortness Of Breath/wheezing Albuterol (Proventil Neb Soln) 2.5 mg NEB QIDRT [facility] Last Admin: 12/01/19 11:09 Dose: 2.5 mg Aspirin (Halfprin) 81 mg PO DAILY [facility] Last Admin: 12/01/19 10:07 Dose: 81 mg Benzonatate (Tessalon Perles) 100 mg PO TID PRN PRN Reason: Cough Guaifenesin/Codeine Phosphate (Robitussin Ac) 10 ml PO Q4H PRN PRN Reason: Cough Last Admin: 11/30/19 21:45 Dose: 10 ml Ibuprofen (Motrin) 600 mg PO Q6H PRN PRN Reason: Pain/Fever Levothyroxine Sodium 25 mcg/ (Levothyroxine Sodium 50 mcg) 75 mcg PO ACBREAKFAST [facility] Last Admin: 12/01/19 07:22 Dose: 75 mcg Magnesium Hydroxide (Milk Of Magnesia) 30 ml PO Q12H PRN PRN Reason: Constipation Melatonin (Melatonin) 9 mg PO BEDTIME PRN PRN Reason: Sleep Ondansetron HCl (Zofran Odt) 4 mg PO Q6H PRN PRN Reason: Nausea able to take PO Ondansetron HCl (Zofran) 4 mg IV Q6H PRN PRN Reason: Nausea/Vomiting Prednisone (Prednisone) 20 mg PO BIDMEALS [facility] Last Admin: 12/01/19 10:07 Dose: 20 mg Senna/Docusate Sodium (Senna Plus) 1 tab PO BID PRN PRN Reason: Constipation Sodium Chloride (Saline Flush) 10 ml FLUSH ASDIRECTED PRN PRN Reason: Keep Vein Open Last Admin: 11/29/19 18:19 Dose: 10 ml Vitamin B Complex (Vitamin B Complex) 1 each PO DAILY [facility] Last Admin: 12/01/19 10:08 Dose: 1 each Discontinued Medications Albuterol (Proventil Neb Soln) 2.5 mg NEB ONETIME ONE Stop: 11/29/19 16:14 Last Admin: 11/29/19 16:23 Dose: 2.5 mg Albuterol (Proventil Neb Soln) 2.5 mg NEB ONETIME ONE Stop: 11/29/19 17:41 Last Admin: 11/29/19 17:51 Dose: 2.5 mg Sodium Chloride (Normal Saline) 1,000 mls @ 500 mls/hr IV ASDIRECTED [facility] Last Admin: 11/29/19 18:15 Dose: 500 mls/hr Methylprednisolone Sodium Succinate (Solu-Medrol) 125 mg IVPUSH ONETIME ONE Stop: 11/29/19 17:48 Last Admin: 11/29/19 18:00 Dose: 125 mg Methylprednisolone Sodium Succinate (Solu-Medrol) 62.5 mg IVPUSH ONETIME ONE Stop: 11/30/19 02:01 Last Admin: 11/30/19 03:30 Dose: 62.5 mg - Exam Quality Assessment: Supplemental Oxygen General: Alert, Oriented, Cooperative, No Acute Distress Lungs: Normal Respiratory Effort, Wheezing (moderate diffuse ) Cardiovascular: Regular Rate, Regular Rhythm GI/Abdominal Exam: Soft, No Distention Extremities: No Pedal Edema Psy/Mental Status: Alert, Normal Affect Sepsis Event Note - Evaluation Sepsis Screening Result: No Definite Risk - Focused Exam Vital Signs: Vital Signs Temp Temp Pulse Resp BP Pulse Ox Pulse Ox 12/01/19 11:10 67 94 L 12/01/19 11:00 36.8 C 78 18 117/54 L 93 L 12/01/19 08:00 68 94 L 12/01/19 07:15 36.2 C 69 18 120/65 88 L 88 L 12/01/19 03:02 92 L 12/01/19 03:00 37.2 C 83 20 112/57 L 88 L Date Exam was Performed: 12/01/19 Time Exam was Performed: 15:41 - Problem List & Annotations (1) Acute bronchitis with bronchospasm SNOMED Code(s): 59099723 Code(s): J20.9 - ACUTE BRONCHITIS, UNSPECIFIED Status: Acute Current Visit: Yes (2) Acute respiratory failure with hypoxia SNOMED Code(s): 94264796, 449727658 Code(s): J96.01 - ACUTE RESPIRATORY FAILURE WITH HYPOXIA Status: Acute Current Visit: Yes - Problem List Review Problem List Initiated/Reviewed/Updated: Yes - My Orders Last 24 Hours: My Active Orders 12/01/19 09:33 CULTURE RESPIRATORY + SMEAR [RM] Routine 12/01/19 12:06 Azithromycin [Zithromax] 500 mg PO ONETIME ONE 12/02/19 09:00 Azithromycin [Zithromax] 250 mg PO DAILY - Plan Plan:: ASSESSMENT AND PLAN - Acute bronchitis with bronchospasm-complicated by acute respiratory failure with hypoxia. Still requiring supplemental oxygen and still hypoxic and wheezing. Clinically feels well otherwise. -Azithromycin 500 mg x 1 today and then 250 mg daily for 4 days -Continue prednisone -Scheduled and as needed nebulizers -Symptomatic management of the cough -Supplement oxygen as needed -Sputum culture if able Tobacco dependence-currently smoking about 5 cigarettes/day. Maintenance issues - - DVT prophylaxis -mechanical - GI prophylaxis -not indicated - Nutrition -regular Disposition -I would anticipate discharge to home after the hospital stay Baljeet Thomas M.D.
[2019-12-01] MEDS ORDERED: Azithromycin 250 MG Tab PO ONE (12:45)
[2019-12-01] MEDS: Codeine/guaiFENesin 100mg-10 MG/5 ML Syrup 10 ML Cup PO PRN (21:45)
[2019-12-02] MEDS: Albuterol 0.083% 2.5 MG/3 ML Neb Soln NEB SCH ×2 (07:02→10:50)
[2019-12-02 07:17] VITALS: BP 113/72; PULSE 65
[2019-12-02] MEDS: Levothyroxine 25 MCG, Levothyroxine 50 MCG PO SCH ×2 (07:18)
[2019-12-02] MEDS: Vitamin B Complex Tab PO SCH (08:49)
[2019-12-02] MEDS: Aspirin 81 MG Tab.EC PO SCH (08:49)
[2019-12-02] MEDS: predniSONE 20 MG Tab PO SCH (08:50)
[2019-12-02] MEDS ORDERED: Azithromycin 250 MG Tab PO SCH (09:00)
--- NOTE | 2019-12-02 10:27 | PCM.DCSUM1 ---
Discharge Summary - Hospital Course Brief History: 64-year-old female with history of tobacco dependence who presented with increasing cough and shortness of breath. She was admitted for management of bronchitis with bronchospasm and hypoxic respiratory failure. Diagnosis: Stroke: No - Discharge Data Discharge Date: 12/02/19 Discharge Disposition: Home, Self-Care 01 Condition: Good - Referral to Home Health Primary Care Physician: Elizabeth Santana PA-C - Discharge Diagnosis/Problem(s) (1) Acute bronchitis with bronchospasm SNOMED Code(s): 02315323 ICD Code: J20.9 - ACUTE BRONCHITIS, UNSPECIFIED Status: Acute (2) Acute respiratory failure with hypoxia SNOMED Code(s): 49145036, 629920921 ICD Code: J96.01 - ACUTE RESPIRATORY FAILURE WITH HYPOXIA Status: Acute - Patient Summary/Data Hospital Course: Raisa presented to the emergency room with progressive cough and shortness of breath. Work-up in the emergency room was suggestive of acute bronchitis with bronchospasm and hypoxic respiratory failure. Her white count was normal and she was afebrile so initially we did not initiate antibiotics but we did initiate supplemental oxygen, steroids and nebulizer therapies. Over the next couple of days she did have some improvement but remained hypoxic and continued to have significant cough and shortness of breath. We did initiate azithromycin the day prior to discharge with fairly rapid improvement after that. She is no longer dependent on supplemental oxygen. She has been afebrile. Symptomatically she is feeling much better with improvement in her shortness of breath and improvement in her cough. She has been up and walking around and feels well. I believe she is safe for discharge home at this time. Her wheezing has essentially resolved so we are going to discontinue steroids. She will need to 3 more doses of a azithromycin after hospital discharge. She will continue with symptomatic management for the cough including guaifenesin with codeine and benzonatate. She has follow-up scheduled in the near future. - Patient Instructions Diet: Regular Diet as Tolerated Activity: As Tolerated Showering/Bathing: May Shower Other/Special Instructions: 1. You were in the hospital for management of acute bronchitis with bronchospasm that caused hypoxia. Your condition has been improving with antibiotics, steroids and additional symptomatic management. I do recommend ongoing antibiotic therapy with the azithromycin. Please take 250 mg once daily in the morning for 3 days starting on Wednesday. You may use the Tessalon Perles as needed for cough and the guaifenesin with codeine as needed for cough as well. 2. Continue your usual home medications as previously prescribed. 3. Return to normal activity as tolerated by the body. You may take several days to get your breathing back to normal and you back to full speed. 4. Follow up with Elizabeth KELLY as scheduled or sooner if things worsen prior to that appointment. - Discharge Plan *PRESCRIPTION DRUG MONITORING PROGRAM REVIEWED*: Not Applicable *COPY OF PRESCRIPTION DRUG MONITORING REPORT IN PATIENT JOSEFINA: Not Applicable Prescriptions/Med Rec: Azithromycin [Zithromax] 250 mg PO DAILY #3 tablet Benzonatate 100 mg PO TID PRN #20 capsule PRN Reason: Cough Codeine/guaiFENesin [Robitussin AC] 10 ml PO Q4H PRN #236 liquid PRN Reason: Cough Home Medications: Home Meds Cholecalciferol (Vitamin D3) [Vitamin D3] 1,000 units PO DAILY 03/06/17 [History ] Levothyroxine Sodium [Synthroid] 75 mcg PO ACBREAKFAST 03/06/17 [History] Ascorbic Acid [Vitamin C] 1,000 mg PO DAILY 10/28/17 [History] Aspirin [Halfprin] 81 mg PO DAILY 10/28/17 [History] Vitamin B Complex [B Complex] 1 each PO DAILY 10/28/17 [History] Azithromycin [Zithromax] 250 mg PO DAILY #3 tablet 12/02/19 [Rx] Benzonatate 100 mg PO TID PRN #20 capsule 12/02/19 [Rx] Codeine/guaiFENesin [Robitussin AC] 10 ml PO Q4H PRN #236 liquid 12/02/19 [Rx] Oxygen Therapy Mode: Room Air Patient Handouts: Upper Respiratory Infection, Adult, Azithromycin tablets Referrals: Elizabeth Santana PA-C [Primary Care Provider] - 12/11/19 12:00 pm (Please arrive 15 minutes early to register for your appointment.) - Discharge Summary/Plan Comment DC Time >30 min.: No - Patient Data Vitals - Most Recent: Last Vital Signs Temp 36.0 C 12/02/19 07:14 Pulse 65 12/02/19 07:14 Resp 16 12/02/19 07:14 BP 113/72 12/02/19 07:14 Pulse Ox 95 12/02/19 08:00 Weight - Most Recent: 55.338 kg I&O - Last 24 hours: Intake & Output 12/01/19 12/02/19 12/02/19 22:59 06:59 14:59 Intake Total 310 480 Balance 310 480 Med Orders - Current: Current Medications Acetaminophen (Tylenol) 650 mg PO Q4H PRN PRN Reason: Pain (Mild 1-3)/fever Last Admin: 11/29/19 19:52 Dose: 650 mg Albuterol (Proventil Neb Soln) 2.5 mg NEB Q4H PRN PRN Reason: Shortness Of Breath/wheezing Albuterol (Proventil Neb Soln) 2.5 mg NEB QIDRT [facility] Last Admin: 12/02/19 07:02 Dose: 2.5 mg Aspirin (Halfprin) 81 mg PO DAILY [facility] Last Admin: 12/02/19 08:49 Dose: 81 mg Azithromycin (Zithromax) 250 mg PO DAILY [facility] Last Admin: 12/02/19 08:50 Dose: 250 mg Benzonatate (Tessalon Perles) 100 mg PO TID PRN PRN Reason: Cough Last Admin: 12/02/19 07:22 Dose: 100 mg Guaifenesin/Codeine Phosphate (Robitussin Ac) 10 ml PO Q4H PRN PRN Reason: Cough Last Admin: 12/01/19 21:45 Dose: 10 ml Ibuprofen (Motrin) 600 mg PO Q6H PRN PRN Reason: Pain/Fever Levothyroxine Sodium 25 mcg/ (Levothyroxine Sodium 50 mcg) 75 mcg PO ACBREAKFAST [facility] Last Admin: 12/02/19 07:18 Dose: 75 mcg Magnesium Hydroxide (Milk Of Magnesia) 30 ml PO Q12H PRN PRN Reason: Constipation Melatonin (Melatonin) 9 mg PO BEDTIME PRN PRN Reason: Sleep Ondansetron HCl (Zofran Odt) 4 mg PO Q6H PRN PRN Reason: Nausea able to take PO Ondansetron HCl (Zofran) 4 mg IV Q6H PRN PRN Reason: Nausea/Vomiting Prednisone (Prednisone) 20 mg PO BIDMEALS [facility] Last Admin: 12/02/19 08:50 Dose: 20 mg Senna/Docusate Sodium (Senna Plus) 1 tab PO BID PRN PRN Reason: Constipation Sodium Chloride (Saline Flush) 10 ml FLUSH ASDIRECTED PRN PRN Reason: Keep Vein Open Last Admin: 11/29/19 18:19 Dose: 10 ml Vitamin B Complex (Vitamin B Complex) 1 each PO DAILY [facility] Last Admin: 12/02/19 08:49 Dose: 1 each Discontinued Medications Albuterol (Proventil Neb Soln) 2.5 mg NEB ONETIME ONE Stop: 11/29/19 16:14 Last Admin: 11/29/19 16:23 Dose: 2.5 mg Albuterol (Proventil Neb Soln) 2.5 mg NEB ONETIME ONE Stop: 11/29/19 17:41 Last Admin: 11/29/19 17:51 Dose: 2.5 mg Azithromycin (Zithromax) 500 mg PO ONETIME ONE Stop: 12/01/19 12:46 Last Admin: 12/01/19 12:41 Dose: 500 mg Sodium Chloride (Normal Saline) 1,000 mls @ 500 mls/hr IV ASDIRECTED [facility] Last Admin: 11/29/19 18:15 Dose: 500 mls/hr Methylprednisolone Sodium Succinate (Solu-Medrol) 125 mg IVPUSH ONETIME ONE Stop: 11/29/19 17:48 Last Admin: 11/29/19 18:00 Dose: 125 mg Methylprednisolone Sodium Succinate (Solu-Medrol) 62.5 mg IVPUSH ONETIME ONE Stop: 11/30/19 02:01 Last Admin: 11/30/19 03:30 Dose: 62.5 mg - Exam Quality Assessment: Denies: Supplemental Oxygen General: Reports: Alert, Oriented, Cooperative, No Acute Distress Lungs: Reports: Normal Respiratory Effort, Wheezing (mild end exp in lower lung romero) Cardiovascular: Reports: Regular Rate, Regular Rhythm Extremities: No Pedal Edema Psy/Mental Status: Reports: Alert, Normal Affect
== END 2019-12-02 12:00 | disposition home or self-care (01) | DRG 189 ==
LOC: JP.ED 15:27 → JP.MS 18:14
PROVIDERS: ADMIT Internal Medicine; ATTEND Internal Medicine
DX: J21.9 Acute bronchiolitis, unspecified (principal); J96.01 Acute respiratory failure with hypoxia; J20.9 Acute bronchitis, unspecified; R00.0 Tachycardia, unspecified; Z86.010 Personal history of colon polyps; E05.90 Thyrotoxicosis, unspecified without thyrotoxic crisis or storm; F17.200 Nicotine dependence, unspecified, uncomplicated; H54.7 Unspecified visual loss; Z79.890 Hormone replacement therapy; E78.00 Pure hypercholesterolemia, unspecified; F17.210 Nicotine dependence, cigarettes, uncomplicated; Z79.82 Long term (current) use of aspirin; Z79.2 Long term (current) use of antibiotics; Z79.899 Other long term (current) drug therapy; Z90.721 Acquired absence of ovaries, unilateral; Z98.890 Other specified postprocedural states; Z99.81 Dependence on supplemental oxygen
CPT/HCPCS: 36415; 36600; 71045; 80053; 82803; 83880; 84484; 85025; 85379; 87804 ×2; 93005; 94640 ×2; 96374; 99285; J2930; 87070; 87205; 93010; 94667; 94762; 99284; A9270-GY; J7030

== ENCOUNTER 2022-09-24 07:30 | Day surgery (SDC) | payer MEDICARE ==
[2022-09-24] MEDS: Sodium Chloride 0.9% 10 ML Syringe FLUSH PRN (07:40)
[2022-09-24 09:18] VITALS: BP 135/65; PULSE 71
== END 2022-09-24 09:29 | disposition home or self-care (01) ==
LOC: JP.SDS 07:30
PROVIDERS: ATTEND Ophthalmology
DX: H25.11 Age-related nuclear cataract, right eye (principal); F17.200 Nicotine dependence, unspecified, uncomplicated
CPT/HCPCS: 66984; J3490

== ENCOUNTER 2022-12-24 07:34 | Day surgery (SDC) | payer MEDICARE ==
[2022-12-24] MEDS ORDERED: Sodium Chloride 0.9% 10 ML Syringe FLUSH PRN (08:00)
[2022-12-24 08:28] VITALS: BP 147/84; PULSE 95
== END 2022-12-24 08:36 | disposition home or self-care (01) ==
LOC: JP.SDS 07:34
PROVIDERS: ATTEND Ophthalmology
DX: H26.9 Unspecified cataract (principal); E78.5 Hyperlipidemia, unspecified; E03.9 Hypothyroidism, unspecified; F17.210 Nicotine dependence, cigarettes, uncomplicated; Z79.899 Other long term (current) drug therapy
CPT/HCPCS: J3490; V2632

== ENCOUNTER 2023-02-09 07:17 | Day surgery (SDC) | payer MEDICARE ==
[2023-02-09] MEDS ORDERED: fentaNYL 50 MCG/ML SDV ONE (07:42)
[2023-02-09] MEDS ORDERED: Midazolam 1 MG/ML 2 ML SDV ONE (07:42)
[2023-02-09] MEDS ORDERED: Propofol 200 MG/20 ML SDV ONE (07:42)
[2023-02-09] MEDS ORDERED: Lactated Ringers 1,000 ML IV SCH (08:00)
[2023-02-09 09:51] VITALS: BP 143/70; PULSE 61
== END 2023-02-09 10:08 | disposition home or self-care (01) ==
LOC: JP.SDS 07:17
PROVIDERS: ATTEND Family Medicine
DX: Z12.11 Encounter for screening for malignant neoplasm of colon (principal); K62.1 Rectal polyp; M81.0 Age-related osteoporosis without current pathological fracture; E03.9 Hypothyroidism, unspecified; Z80.0 Family history of malignant neoplasm of digestive organs; Z86.010 Personal history of colon polyps; F17.200 Nicotine dependence, unspecified, uncomplicated
CPT/HCPCS: 45380; 88305; J2250; J2704; J3010; J7120

== ENCOUNTER 2023-04-27 09:18 | Emergency (ER) | payer MEDICARE ==
[2023-04-27] MEDS ORDERED: Lactated Ringers 1,000 ML IV ONE (09:37)
[2023-04-27] MEDS ORDERED: droPERidol 5 MG/2 ML SDV IVPUSH ONE (09:38)
[2023-04-27 09:39] VITALS: BP 134/71; PULSE 89
== END 2023-04-27 11:06 | disposition home or self-care (01) ==
LOC: JP.ED 09:18
DX: F12.920 Cannabis use, unspecified with intoxication, uncomplicated (principal); E78.00 Pure hypercholesterolemia, unspecified; E03.9 Hypothyroidism, unspecified; Z86.16 Personal history of COVID-19; Z79.82 Long term (current) use of aspirin; Z79.899 Other long term (current) drug therapy
CPT/HCPCS: 96361; 96374; 99284; J1790; J7120

== ENCOUNTER 2023-08-21 13:01 | Emergency (ER) | payer MEDICARE ==
[2023-08-21 14:27] VITALS: BP 182/80; PULSE 70
[2023-08-21] MEDS ORDERED: Sodium Chloride 0.9% 10 ML Syringe FLUSH PRN (15:30)
[2023-08-21] MEDS ORDERED: Sodium Chloride 0.9% 1,000 ML IV ONE (15:30)
[2023-08-21] MEDS ORDERED: Meclizine 25 MG Tab PO ONE (15:30)
[2023-08-21 15:43] LABS: BASOPHILS ABSOLUTE AUTO 0.05 K/uL (0.00-0.10); BASOPHILS PERCENT AUTO 0.4 % (0.1-1.3); EOSINOPHILS ABSOLUTE AUTO 0.05 K/uL (0.00-0.40); EOSINOPHILS PERCENT AUTO 0.4 % (0.0-5.4); HEMATOCRIT 44.8 % (34.3-46.0); HEMOGLOBIN 15.1 g/dL (11.2-15.5); IMMATURE GRAN ABSOLUTE AUTO 0.04 K/uL (0.00-0.23); IMMATURE GRAN PERCENT AUTO 0.3 % (0.0-0.7); LYMPHOCYTES ABSOLUTE AUTO 2.55 K/uL (0.8-3.3); LYMPHOCYTES PERCENT AUTO 21.9 % (11.4-47.7); MEAN CORPUSCULAR HEMOGLOBIN 30.4 pg (31.6-35.5); MEAN CORPUSCULAR HGB CONC 33.7 g/dL (31.6-35.5); MEAN CORPUSCULAR VOLUME 90.3 fL (81.4-99.0); MONOCYTES ABSOLUTE AUTO 0.76 K/uL (0.20-0.90); MONOCYTES PERCENT AUTO 6.5 % (3.3-12.6); NEUTROPHILS ABSOLUTE AUTO 8.22 K/uL (1.0-7.6); NEUTROPHILS PERCENT AUTO 70.5 % (40.0-78.1); PLATELET COUNT,PLT 289 K/uL (130-375); RED BLOOD CELL COUNT 4.96 M/uL (3.77-5.24); WHITE BLOOD CELL COUNT,WBC 11.7 K/uL (3.2-11.0)
[2023-08-21 16:07] LABS: BLOOD UREA NITROGEN,BUN 12 mg/dL (7-18); CALCIUM 8.9 mg/dL (8.5-10.1); CARBON DIOXIDE,CO2 29 mmol/L (21-32); CHLORIDE,CL 100 mmol/L (100-108); CREATININE 0.6 mg/dL (0.6-1.0); EST CRCL DRUG DOSING (CG) 62.67 mL/min; ESTIMATED GFR 97 mL/min (>60); GLUCOSE RANDOM 89 mg/dL (74-106); SODIUM,NA 136 mmol/L (140-148); TROPONIN I HIGH SENSITIVITY < 4.0 pg/mL (<=60.3)
== END 2023-08-21 17:11 | disposition home or self-care (01) ==
LOC: JP.ED 13:01
DX: R42 Dizziness and giddiness (principal); E03.9 Hypothyroidism, unspecified; E78.00 Pure hypercholesterolemia, unspecified; Z86.16 Personal history of COVID-19; Z79.82 Long term (current) use of aspirin; Z79.899 Other long term (current) drug therapy
CPT/HCPCS: 36415; 80048; 84484; 85025; 93005; 96360; 99284; A9270; J7030; 93010; 99283